=== PATIENT | male | born 1990 | race Caucasian/White ===

== ENCOUNTER 2024-04-28 05:29 | Day surgery (SDC) | payer OTHER ==
[2024-04-23 17:45] VITALS: BMI 39.0
[2024-04-28] MEDS ORDERED: BACITRACIN ZINC 15 GM TUBE TOPICAL OINTMENT ONE (09:47)
[2024-04-28] MEDS ORDERED: LIDOCAINE 1%/EPI 1:100000 (20 ML MULTI DOSE VIAL) ONE (09:47)
[2024-04-28] MEDS ORDERED: POVIDONE-IODINE 5% OPHTHALMIC PREP 30 ML SOLUTION ONE (09:49)
[2024-04-28] MEDS ORDERED: PROPOFOL 20 ML ONE ×2 (10:20→13:18)
[2024-04-28] MEDS ORDERED: MIDAZOLAM HCL 2 MG/2 ML SINGLE DOSE VIAL ONE (10:21)
[2024-04-28] MEDS ORDERED: DEXAMETHASONE SOD PHOSPHATE 4 MG/1 ML VIAL ONE (10:23)
[2024-04-28] MEDS ORDERED: ONDANSETRON 4 MG/2 ML VIAL ONE (10:23)
[2024-04-28] MEDS: ceFAZolin SODIUM 1 GM VIAL IVPB ONE (10:32)
[2024-04-28] MEDS: OXYMETAZOLINE 0.05% NASAL SOLUTION 15 ML BOTTLE NS ONE (10:34)
[2024-04-28] MEDS: LIDOCAINE 1%/EPI 1:100000 (20 ML MULTI DOSE VIAL) IJ ONE (10:35)
[2024-04-28] MEDS: POVIDONE-IODINE 5% OPHTHALMIC PREP 30 ML SOLUTION OU ONE (10:38)
[2024-04-28] MEDS: MICROFIBRILLAR COLLAGEN 1 GM EACH TP ONE ×2 (13:02)
[2024-04-28] MEDS ORDERED: ONDANSETRON 4 MG/2 ML VIAL IVPUSH PRN (13:49)
[2024-04-28] MEDS ORDERED: oxyCODONE HCL 5 MG TABLET PO PRN (13:49)
[2024-04-28 17:27] VITALS: BP 130/76; PULSE 108; RESP 20; TEMP 97.5
== END 2024-04-28 17:35 | disposition home or self-care (01) ==
LOC: JASU-SURG 05:29
PROVIDERS: ATTEND Otolaryngology
PROC: 09SM0ZZ Reposition Nasal Septum, Open Approach (ICD-10-PCS; principal; 2024-04-28 10:00)
DX: M95.0 Acquired deformity of nose (principal); J34.2 Deviated nasal septum
CPT/HCPCS: 86850; 86900; 86901; 88304-TC; 88311-TC; 94760